=== PATIENT | female | born 1980 | race Caucasian/White ===

== ENCOUNTER → 2017-01-02 | Outpatient (REF) | payer OTHER ==
[~2017-01-02] MED LIST: MOTR200T44 PO; PERC5TAB6 PO; VITAPRTA PO
== END ==
LOC: M LAB REF 10:49
PROVIDERS: ATTEND Physician Assistant
DX: R50.9 Fever, unspecified (principal)

== ENCOUNTER → 2017-05-02 | Outpatient (REF) | payer OTHER ==
[~2017-05-02] MED LIST changes: +PERC5TAB12 PO; -PERC5TAB6 PO
== END ==
LOC: M LAB REF 18:04
PROVIDERS: ATTEND Physician Assistant
DX: R30.0 Dysuria (principal)

== ENCOUNTER → 2017-06-14 | Outpatient (REF) | payer OTHER ==
[2017-06-14 14:55] LABS: MEAN CORPUSCULAR HGB CONC 34.9 g/dl (32.0-36.5); MEAN CORPUSCULAR VOLUME 88.9 fl (80.0-96.0); RED CELL DISTRIBUTION WIDTH 11.9 % (11.5-14.5)
[2017-06-14 15:14] LABS: ANION GAP 8 MEQ/L (8-16); BLOOD UREA NITROGEN 10 MG/DL (7-18); CALCIUM LEVEL 8.5 MG/DL (8.5-10.1); CARBON DIOXIDE LEVEL 28 MEQ/L (21-32); CHLORIDE LEVEL 107 MEQ/L (98-107); CHOLESTEROL LEVEL 158 MG/DL (<200); CREATININE FOR GFR 0.71 MG/DL (0.55-1.02); GLOMERULAR FILTRATION RATE > 60.0 (>60); GLUCOSE, FASTING 78 MG/DL (70-105); SODIUM LEVEL 143 MEQ/L (136-145); TRIGLYCERIDES LEVEL 62 MG/DL (<150)
== END ==
LOC: M LABDRAW1 13:03
PROVIDERS: ATTEND Student in an Organized Health Care Education/Training Program
DX: R07.89 Other chest pain (principal); F41.9 Anxiety disorder, unspecified; I95.89 Other hypotension; R53.83 Other fatigue

== ENCOUNTER → 2017-12-01 | Outpatient (CLI) | payer OTHER | LOC: M WUC 14:47 | DX: R91.8 Other nonspecific abnormal finding of lung field (principal); R06.02 Shortness of breath | CPT/HCPCS: 71046 ==

== ENCOUNTER → 2018-01-10 | Outpatient (REF) | payer OTHER ==
[2018-01-10 21:14] LABS: CHLAMYDIA DNA AMPLIFICATION NEGATIVE (NEGATIVE); GC DNA AMPLIFICATION NEGATIVE (NEGATIVE)
== END ==
LOC: M LAB REF 17:21
DX: Z11.3 Encounter for screening for infections with a predominantly sexual mode of transmission (principal)
CPT/HCPCS: 87591

== ENCOUNTER → 2018-01-10 | Outpatient (REF) | payer OTHER | LOC: M LAB REF 18:07 | DX: Z12.4 Encounter for screening for malignant neoplasm of cervix (principal) | CPT/HCPCS: 88142 ==

== ENCOUNTER → 2018-05-05 | Outpatient (REF) | payer OTHER ==
[2018-05-05 23:54] LABS: CHLAMYDIA DNA AMPLIFICATION NEGATIVE (NEGATIVE); GC DNA AMPLIFICATION NEGATIVE (NEGATIVE)
== END ==
LOC: M LAB REF 16:41
DX: N76.0 Acute vaginitis (principal)
CPT/HCPCS: 87086

== ENCOUNTER → 2018-05-19 | Outpatient (CLI) | payer OTHER | LOC: M RAD 14:56 | DX: R10.32 Left lower quadrant pain (principal) | CPT/HCPCS: 76857 ==

== ENCOUNTER → 2018-09-19 | Outpatient (CLI) | payer MEDICAID | LOC: M OUTALCOH 07:59 | DX: Z13.9 Encounter for screening, unspecified (principal); Z03.89 Encounter for observation for other suspected diseases and conditions ruled out ==

== ENCOUNTER 2018-09-30 08:49 | Outpatient (RCR) | payer MEDICAID | END 2018-10-17 | LOC: M OUTALCOH 08:49 | PROVIDERS: ATTEND Psychiatry & Neurology Psychiatry | DX: Z03.89 Encounter for observation for other suspected diseases and conditions ruled out (principal) ==

== ENCOUNTER → 2019-01-11 | Outpatient (REF) | payer MEDICAID ==
[2019-01-11 15:26] LABS: CHLAMYDIA DNA AMPLIFICATION NEGATIVE (NEGATIVE); GC DNA AMPLIFICATION NEGATIVE (NEGATIVE)
== END ==
LOC: M LAB REF 12:59
PROVIDERS: ATTEND Advanced Practice Midwife
DX: N76.0 Acute vaginitis (principal)

== ENCOUNTER → 2019-02-08 | Outpatient (CLI) | payer MEDICAID ==
[2019-02-08 15:37] LABS: HEPATITIS A ANTIBODY IGM NEGATIVE (NEGATIVE); HEPATITIS B CORE ANTIBODY IGM NEGATIVE (NEGATIVE); HEPATITIS B SURFACE ANTIGEN NEGATIVE (NEGATIVE); HIV 1&2 SCREEN CENTAUR NEGATIVE (NEGATIVE)
== END ==
LOC: M SMT 09:05
PROVIDERS: ATTEND Advanced Practice Midwife
DX: Z11.3 Encounter for screening for infections with a predominantly sexual mode of transmission (principal)

== ENCOUNTER → 2019-10-04 | Outpatient (REF) | payer MEDICAID | LOC: M LAB REF 17:18 | PROVIDERS: ATTEND Physician Assistant | DX: J02.9 Acute pharyngitis, unspecified (principal) ==

== ENCOUNTER 2019-12-21 11:39 | Emergency (ER) | payer MEDICAID, OTHER ==
[~2019-12-21] VITALS: Ht 160 cm; Wt 77.3 kg
[2019-12-21] MEDS ORDERED: ALPR1TAB3 (11:45)
[2019-12-21] MEDS ORDERED: SERT50TA29 (11:45)
[2019-12-21] MEDS ORDERED: IBUPROFEN 800 MG TAB PO ONE (12:15)
--- NOTE | 2019-12-21 12:39 | REP ---
Right shoulder: Three views. History: Injury 3 months ago. Increased pain. Findings: Three views of the right shoulder demonstrate a normal alignment of the glenohumeral and acromioclavicular joints. There is no evidence of fracture or subluxation. Periarticular soft tissues are unremarkable. Impression: Negative radiographs right shoulder. Electronically Signed by Jose Alejandro Munoz MD 12/21/2019 12:31 P
--- NOTE | 2019-12-21 12:58 | REPVR ---
PROCEDURE INFORMATION: Exam: CT Cervical Spine Without Contrast Exam date and time: 12/21/2019 12:18 PM Age: 39 years old Clinical indication: Other: Tingling of R pinky, ring/middle finger TECHNIQUE: Imaging protocol: Computed tomography images of the cervical spine without contrast. Radiation optimization: All CT scans at this facility use at least one of these dose optimization techniques: automated exposure control; mA and/or kV adjustment per patient size (includes targeted exams where dose is matched to clinical indication); or iterative reconstruction. COMPARISON: No relevant prior studies available. FINDINGS: Vertebrae: Vertebral body heights are intact. Alignment is maintained. No acute fracture is identified. Discs/Spinal canal/Neural foramina: No significant posterior disc displacements are evident. Prevertebral Space: The prevertebral soft tissues are not significantly swollen. Soft tissues: The soft tissues appear grossly unremarkable. Lungs: The visualized lung apices are clear. Pleural space: No apical pneumothorax is identified. IMPRESSION: No significant posterior disc displacements evident. The discs and integrity of the cord could be better evaluated by means of MRI as clinically appropriate. Electronically signed by: Spenser Dudley On 12/21/2019 12:58:07 PM
[2019-12-21] MEDS ORDERED: GABA-843 PO (13:29)
[2019-12-21 13:35] VITALS: BP 121/67
--- NOTE | 2019-12-22 14:16 | ED PDOC ---
Post-Departure Follow-Up dr austin faxed formal report of ct c spine for fu Edilma Daily MD Dec 22, 2019 14:16
== END 2019-12-21 13:37 | disposition home or self-care (01) ==
LOC: M ED 11:39
DX: M54.12 Radiculopathy, cervical region (principal); J45.909 Unspecified asthma, uncomplicated; F41.9 Anxiety disorder, unspecified; Z79.899 Other long term (current) drug therapy

== ENCOUNTER → 2020-01-15 | Outpatient (REF) | payer OTHER, MEDICAID ==
[~2020-01-15] MED LIST changes: +ALPR1TAB3; +GABA-843 PO; +SERT50TA29
[2020-01-15 16:11] LABS: CHLAMYDIA DNA AMPLIFICATION NEGATIVE (NEGATIVE); GC DNA AMPLIFICATION NEGATIVE (NEGATIVE)
== END ==
LOC: M SFHCWAGY 13:38
PROVIDERS: ATTEND Nurse Practitioner Family
DX: Z11.3 Encounter for screening for infections with a predominantly sexual mode of transmission (principal)

== ENCOUNTER → 2020-03-22 | Outpatient (CLI) | payer OTHER ==
--- NOTE | 2020-03-22 10:21 | REP ---
MRI RIGHT SHOULDER: TECHNIQUE: Axial T2 fat sat, gradient echo, sagittal oblique T2 fat sat, coronal oblique T1, T2 fat sat. Supraspinatus tendon demonstrates scattered ill-defined high signal on T2-weighted images compatible with tendinopathy/tendinitis. I do not see evidence of a rotator cuff tear. There are mild hypertrophic degenerative changes of the acromioclavicular joint with a type 1 acromion. Biceps tendon is within the bicipital groove with no tenosynovitis. There is no Hill-Sachs deformity. The deltoid muscle demonstrates no abnormal signal. Biceps labral complex appears intact. I do not see evidence of a discrete labral tear. Posterior labrum appears somewhat truncated. No paralabral cyst is seen. There is no bone marrow edema or occult fracture. There is normal amount of joint fluid. No osteochondral defect is seen. IMPRESSION: Supraspinatus tendinopathy/tendonitis of a mild to moderate degree. No rotator cuff tear or labral tear seen. Mild hypertrophic degenerative changes of acromioclavicular joint. Electronically Signed by Jameson Moncada MD 03/25/2020 09:39 P
== END ==
LOC: M RAD 07:26
PROVIDERS: ATTEND Orthopaedic Surgery Hand Surgery
DX: M75.41 Impingement syndrome of right shoulder (principal)

== ENCOUNTER → 2020-04-23 | Outpatient (REF) | payer OTHER | LOC: M SFHCWAGY 14:48 | PROVIDERS: ATTEND Nurse Practitioner Women's Health | DX: N76.0 Acute vaginitis (principal) ==

== ENCOUNTER → 2020-10-29 | Outpatient (CLI) | payer OTHER ==
[~2020-10-29] MED LIST changes: +GABA-282 PO; -GABA-843 PO
--- NOTE | 2020-10-29 10:01 | REP ---
INDICATION: PAIN COMPARISON: None. TECHNIQUE: AP, lateral, flexion/extension, bilateral oblique, and open-mouth views. FINDINGS: Alignment and lordosis is maintained. There is no evidence for acute fracture / compression injury or subluxation. No significant degenerative changes are appreciated. Oblique views demonstrate patent neural foramen. Open mouth view demonstrates normal C1-C2 articulation and odontoid process. IMPRESSION: Normal age-appropriate cervical spine series. <Electronically signed by Prabhu Ricardo > 10/29/20 0929
== END ==
LOC: M SOG 09:45
PROVIDERS: ATTEND Orthopaedic Surgery Sports Medicine
DX: Z47.89 Encounter for other orthopedic aftercare (principal); G56.01 Carpal tunnel syndrome, right upper limb

== ENCOUNTER → 2020-11-18 | Outpatient (CLI) | payer OTHER ==
--- NOTE | 2020-11-18 17:06 | REPVR ---
PROCEDURE INFORMATION: Exam: MR Cervical Spine Without Contrast Exam date and time: 11/18/2020 3:47 PM Age: 40 years old Clinical indication: Radicular pain (radiculopathy); Cervical region; Additional info: Radiculopathy, c region TECHNIQUE: Imaging protocol: Multiplanar magnetic resonance images of the cervical spine without contrast. COMPARISON: CT Spine,cervical w/o contrast 12/21/2019 12:16 PM FINDINGS: Cervical vertebral body heights are intact. Cervical lordosis is maintained. The dens is intact. Disc space heights are unremarkable. No abnormal marrow signal. No cord compression, expansion, or abnormal cord signal. Visualized structures of the posterior fossa are unremarkable. No significant areas of canal or foraminal narrowing. Soft tissues are unremarkable. IMPRESSION: No acute findings in the cervical spine. Electronically signed by: Luke Vazquez On 11/18/2020 17:06:35 PM
== END ==
LOC: M RAD 15:43
PROVIDERS: ATTEND Orthopaedic Surgery Sports Medicine
DX: M54.12 Radiculopathy, cervical region (principal)

== ENCOUNTER 2021-01-28 08:45 | Outpatient (RCR) | payer OTHER | END 2021-02-14 | LOC: M PT 08:45 | PROVIDERS: ATTEND Orthopaedic Surgery Sports Medicine | DX: M25.511 Pain in right shoulder (principal); M75.41 Impingement syndrome of right shoulder; G56.01 Carpal tunnel syndrome, right upper limb ==

== ENCOUNTER 2021-03-14 09:30 | Outpatient (RCR) | payer OTHER | END 2021-03-17 | LOC: M PT 09:30 | PROVIDERS: ATTEND Orthopaedic Surgery Sports Medicine | DX: M25.511 Pain in right shoulder (principal); M75.41 Impingement syndrome of right shoulder; G56.01 Carpal tunnel syndrome, right upper limb ==

== ENCOUNTER → 2021-04-16 | Outpatient (RCR) | payer OTHER | LOC: M PT 03-20 09:31 | PROVIDERS: ATTEND Orthopaedic Surgery Sports Medicine | DX: M25.511 Pain in right shoulder (principal); M75.41 Impingement syndrome of right shoulder; G56.01 Carpal tunnel syndrome, right upper limb ==

== ENCOUNTER → 2021-06-17 | Outpatient (RCR) | payer OTHER | LOC: M PT 05-22 08:47 | PROVIDERS: ATTEND Orthopaedic Surgery Sports Medicine | DX: M25.511 Pain in right shoulder (principal); M75.41 Impingement syndrome of right shoulder; G56.01 Carpal tunnel syndrome, right upper limb ==

== ENCOUNTER 2021-07-01 14:35 | Outpatient (RCR) | payer OTHER | END 2021-07-17 | LOC: M PT 14:35 | PROVIDERS: ATTEND Orthopaedic Surgery Sports Medicine | DX: M25.511 Pain in right shoulder (principal); M75.41 Impingement syndrome of right shoulder; G56.01 Carpal tunnel syndrome, right upper limb ==

== ENCOUNTER → 2021-07-17 | Outpatient (REF) ==
[2021-07-17 14:11] LABS: RSV AMPLIFICATION NEGATIVE (NEGATIVE)
== END ==
LOC: M LABSMTC 10:05
PROVIDERS: ATTEND Pediatrics
DX: Z11.52 Encounter for screening for COVID-19 (principal)

== ENCOUNTER → 2021-09-16 | Outpatient (REF) | payer OTHER | LOC: M SFHCWAGY 11:45 | PROVIDERS: ATTEND Nurse Practitioner Women's Health | DX: Z12.4 Encounter for screening for malignant neoplasm of cervix (principal) ==

== ENCOUNTER → 2021-09-30 | Outpatient (CLI) | payer OTHER ==
--- NOTE | 2021-09-30 09:59 | REP ---
INDICATION: ANEMIA COMPARISON: 12/01/2017 TECHNIQUE: PA and lateral. FINDINGS: The mediastinum and cardiac silhouette are normal. The lung chang are clear and without acute consolidation, effusion, or pneumothorax. The skeletal structures are intact and normal. IMPRESSION: No acute cardiopulmonary process. <Electronically signed by Prabhu Ricardo > 09/30/21 [id number]
[2021-09-30 11:23] LABS: HEMATOCRIT 36.2 % (36.0-47.0); HEMOGLOBIN 12.2 g/dl (12.0-15.5); MEAN CORPUSCULAR HEMOGLOBIN 28.8 pg (27.0-33.0); MEAN CORPUSCULAR HGB CONC 33.7 g/dl (32.0-36.5); MEAN CORPUSCULAR VOLUME 85.4 fl (80.0-96.0); PLATELET COUNT, AUTOMATED 202 10^3/uL (150-450); RED BLOOD COUNT 4.24 10^6/uL (4.00-5.40); WHITE BLOOD COUNT 5.9 10^3/uL (4.0-10.0)
[2021-09-30 11:48] LABS: HEMOGLOBIN A1c 4.9 %
[2021-09-30 12:19] LABS: ALBUMIN 3.7 GM/DL (3.2-5.2); ALT/SGPT 34 U/L (12-78); BILIRUBIN,TOTAL 0.6 MG/DL (0.2-1.0); BLOOD UREA NITROGEN 13 MG/DL (7-18); CALCIUM LEVEL 8.9 MG/DL (8.5-10.1); CARBON DIOXIDE LEVEL 25 MEQ/L (21-32); CHLORIDE LEVEL 109 MEQ/L (98-107); CHOLESTEROL LEVEL 184 MG/DL (<200); CHOLESTEROL RISK RATIO 3.538 (<5); CREATININE FOR GFR 0.66 MG/DL (0.55-1.30); GLOMERULAR FILTRATION RATE > 60.0 (>60); GLUCOSE, FASTING 84 MG/DL (70-100); HDL CHOLESTEROL 52 MG/DL (>40); LDL CHOLESTEROL 117 MG/DL (<100); NON-HDL-C 132 MG/DL; POTASSIUM SERUM 4.1 MEQ/L (3.5-5.1); SODIUM LEVEL 138 MEQ/L (136-145); THYROID STIMULATING HORMONE 0.718 uIU/ML (0.358-3.740); TOTAL 25(OH) VITAMIN D 25.2 NG/ML (30.0-100.0); TOTAL PROTEIN 7.3 GM/DL (6.4-8.2); TRIGLYCERIDES LEVEL 74 MG/DL (<150)
--- NOTE | 2021-10-02 00:07 | ECGEPIP ---
[facility] Test Date: 2021-09-30 Pat Name: NAZIA SOSA Department: Room: - Gender: Female [employer]: dunia : 1980 Requested By: Han Lao Order Number: [id number] Reading MD: Edu Henley Measurements Intervals [place] Rate: 66 P: 22 PA: 118 QRS: 49 QRSD: 78 T: 29 QT: 394 QTc: 413 Interpretive Statements Normal sinus rhythm No prior tracing in the system Electronically Signed on 10-02-2021 0:07:18 EST by Edu Henley
== END ==
LOC: M RAD 09:36
PROVIDERS: ATTEND Family Medicine
DX: D64.9 Anemia, unspecified (principal); R53.83 Other fatigue; E03.9 Hypothyroidism, unspecified

== ENCOUNTER → 2021-10-22 | Outpatient (REF) | LOC: M LABSMTC 11:04 | PROVIDERS: ATTEND Family Medicine | DX: Z11.52 Encounter for screening for COVID-19 (principal); Z20.822 Contact with and (suspected) exposure to COVID-19 ==

== ENCOUNTER → 2022-02-25 | Outpatient (CLI) | payer OTHER ==
[2022-02-25 10:45] LABS: HEMATOCRIT 36.8 % (36.0-47.0); HEMOGLOBIN 12.6 g/dl (12.0-15.5); MEAN CORPUSCULAR HEMOGLOBIN 29.9 pg (27.0-33.0); MEAN CORPUSCULAR HGB CONC 34.2 g/dl (32.0-36.5); MEAN CORPUSCULAR VOLUME 87.4 fl (80.0-96.0); PLATELET COUNT, AUTOMATED 216 10^3/uL (150-450); RED BLOOD COUNT 4.21 10^6/uL (4.00-5.40); WHITE BLOOD COUNT 4.8 10^3/uL (4.0-10.0)
[2022-02-25 11:22] LABS: ALBUMIN 3.6 GM/DL (3.2-5.2); ALT/SGPT 22 U/L (12-78); BILIRUBIN,TOTAL 0.3 MG/DL (0.2-1.0); BLOOD UREA NITROGEN 12 MG/DL (7-18); CALCIUM LEVEL 8.9 MG/DL (8.5-10.1); CARBON DIOXIDE LEVEL 25 MEQ/L (21-32); CHLORIDE LEVEL 110 MEQ/L (98-107); CHOLESTEROL LEVEL 164 MG/DL (<200); CHOLESTEROL RISK RATIO 3.094 (<5); GLOMERULAR FILTRATION RATE > 60.0 (>60); GLUCOSE, FASTING 87 MG/DL (70-100); HDL CHOLESTEROL 53 MG/DL (>40); LDL CHOLESTEROL 100 MG/DL (<100); NON-HDL-C 111 MG/DL; POTASSIUM SERUM 4.4 MEQ/L (3.5-5.1); SODIUM LEVEL 141 MEQ/L (136-145); THYROID STIMULATING HORMONE 0.534 uIU/ML (0.358-3.740); TOTAL PROTEIN 6.8 GM/DL (6.4-8.2); TRIGLYCERIDES LEVEL 54 MG/DL (<150)
[2022-02-25 11:28] LABS: TOTAL 25(OH) VITAMIN D 24.6 NG/ML (30.0-100.0)
[2022-02-25 13:00] LABS: HEMOGLOBIN A1c 4.9 %
== END ==
LOC: M LAB 09:07
PROVIDERS: ATTEND Family Medicine
DX: I10 Essential (primary) hypertension (principal); R53.83 Other fatigue; D64.9 Anemia, unspecified; E03.9 Hypothyroidism, unspecified

== ENCOUNTER → 2022-08-04 | Outpatient (CLI) | payer OTHER | LOC: M SOG 07:52 | PROVIDERS: ATTEND Orthopaedic Surgery | DX: M25.511 Pain in right shoulder (principal) ==

== ENCOUNTER → 2022-12-01 | Outpatient (REF) | LOC: M LABSMTC 09:59 | PROVIDERS: ATTEND Family Medicine | DX: Z20.822 Contact with and (suspected) exposure to COVID-19 (principal) ==

== ENCOUNTER → 2024-01-19 | Outpatient (CLI) | payer OTHER ==
[2024-01-19 14:38] LABS: HEMATOCRIT 40.9 % (36.0-47.0); HEMOGLOBIN 13.8 g/dl (12.0-15.5); MEAN CORPUSCULAR HEMOGLOBIN 28.8 pg (27.0-33.0); MEAN CORPUSCULAR HGB CONC 33.7 g/dl (32.0-36.5); MEAN CORPUSCULAR VOLUME 85.4 fl (80.0-96.0); PLATELET COUNT, AUTOMATED 243 10^3/uL (150-450); RED BLOOD COUNT 4.79 10^6/uL (4.00-5.40); WHITE BLOOD COUNT 6.1 10^3/uL (4.0-10.0)
[2024-01-19 15:10] LABS: ALBUMIN 3.6 G/DL (3.2-5.2); ALKALINE PHOSPHATASE 94 U/L (46-116); ALT/SGPT 20 U/L (7.0-40); AST/SGOT 15 U/L (<34); BILIRUBIN,TOTAL 0.3 MG/DL (0.3-1.2); BLOOD UREA NITROGEN 10 MG/DL (9-23); CALCIUM LEVEL 9.1 MG/DL (8.5-10.1); CARBON DIOXIDE LEVEL 26 MMOL/L (20-31); CHLORIDE LEVEL 107 MMOL/L (98-107); CHOLESTEROL LEVEL 194 MG/DL (<200); CHOLESTEROL RISK RATIO 3.62 (<5); CREATININE FOR GFR 0.76 MG/DL (0.55-1.30); GLOMERULAR FILTRATION RATE > 60.0 (>58); GLUCOSE, FASTING 98 MG/DL (60-100); HDL CHOLESTEROL 53.5 MG/DL (>40); LDL CHOLESTEROL 118.7 MG/DL (<100); NON-HDL-C 140.5 MG/DL; POTASSIUM SERUM 4.1 MMOL/L (3.5-5.1); SODIUM LEVEL 137 MMOL/L (136-145); TOTAL PROTEIN 7.1 G/DL (5.7-8.2); TRIGLYCERIDES LEVEL 109 MG/DL (<150)
[2024-01-19 15:13] LABS: THYROID STIMULATING HORMONE 1.204 uIU/ML (0.55-4.78)
[2024-01-19 15:34] LABS: HEMOGLOBIN A1c 5.2 % (4.0-6.0)
== END ==
LOC: M RAD 13:51
PROVIDERS: ATTEND Family Medicine
DX: I10 Essential (primary) hypertension (principal); R53.83 Other fatigue; E03.9 Hypothyroidism, unspecified

== ENCOUNTER → 2024-01-26 | Outpatient (CLI) | payer OTHER | LOC: M WHC 13:11 | PROVIDERS: ATTEND Family Medicine | DX: Z12.31 Encounter for screening mammogram for malignant neoplasm of breast (principal) ==

== ENCOUNTER → 2025-01-11 | Outpatient (CLI) | payer OTHER ==
[~2025-01-11] MED LIST changes: +GABA-1172 PO; -GABA-282 PO
[2025-01-11 11:54] LABS: HEMATOCRIT 36.9 % (36.0-47.0); HEMOGLOBIN 12.3 g/dl (12.0-15.5); MEAN CORPUSCULAR HEMOGLOBIN 28.7 pg (27.0-33.0); MEAN CORPUSCULAR HGB CONC 33.3 g/dl (32.0-36.5); MEAN CORPUSCULAR VOLUME 86.2 fl (80.0-96.0); PLATELET COUNT, AUTOMATED 248 10^3/uL (150-450); RED BLOOD COUNT 4.28 10^6/uL (4.00-5.40); WHITE BLOOD COUNT 10.7 10^3/uL (4.0-10.0)
[2025-01-11 12:18] LABS: ALBUMIN 3.8 G/DL (3.2-5.2); ALKALINE PHOSPHATASE 53 U/L (35-104); ALT/SGPT 19 U/L (7.0-40); AST/SGOT 15 U/L (<34); BILIRUBIN,TOTAL 0.4 MG/DL (0.3-1.2); BLOOD UREA NITROGEN 17 MG/DL (9-23); CALCIUM LEVEL 9.1 MG/DL (8.5-10.1); CARBON DIOXIDE LEVEL 28 MMOL/L (20-31); CHLORIDE LEVEL 106 MMOL/L (98-107); CREATININE FOR GFR 0.73 MG/DL (0.55-1.30); GLOMERULAR FILTRATION RATE > 60.0 (>58); GLUCOSE, FASTING 94 MG/DL (60-100); POTASSIUM SERUM 4.1 MMOL/L (3.5-5.1); SODIUM LEVEL 139 MMOL/L (136-145)
[2025-01-11 12:19] LABS: THYROID STIMULATING HORMONE 0.907 uIU/ML (0.55-4.78)
[2025-01-11 12:20] LABS: TOTAL 25(OH) VITAMIN D 43.3 NG/ML (20.0-100.0)
[2025-01-11 12:44] LABS: HEMOGLOBIN A1c 4.5 % (4.0-6.0)
== END ==
LOC: M RAD 11:11
PROVIDERS: ATTEND Family Medicine
DX: D64.9 Anemia, unspecified (principal); E03.9 Hypothyroidism, unspecified; R53.83 Other fatigue

== ENCOUNTER → 2025-01-30 | Outpatient (CLI) | payer OTHER | LOC: M WHC 08:48 | PROVIDERS: ATTEND Family Medicine | DX: Z12.31 Encounter for screening mammogram for malignant neoplasm of breast (principal) ==

== ENCOUNTER → 2025-02-07 | Outpatient (REF) | LOC: M EMP 09:38 | PROVIDERS: ATTEND Family Medicine | DX: Z01.89 Encounter for other specified special examinations (principal) ==